=== PATIENT | female | born 1985 | race Caucasian/White ===

== ENCOUNTER 2020-04-02 16:42 | Emergency (ER) | payer OTHER ==
[2020-04-02] MEDS ORDERED: SODIUM CHLORIDE 0.9% 1,000 ML IV STA (17:27)
[2020-04-02] MEDS ORDERED: ONDANSETRON 4 MG/2 ML VIAL IVP STA (17:27)
[2020-04-02 18:03] LABS: Basophils # (A) 0.1 k/uL (0-0.2); Basophils % (A) 1 %; Eosinophils # (A) 0.3 k/uL (0-0.7); Eosinophils % (A) 3 %; HCT 43.1 % (34.0-46.0); HGB 14.3 gm/dL (11.4-16.0); Lymphocytes # (A) 2.7 k/uL (1.0-4.8); Lymphocytes % (A) 28 %; MCH 30.3 pg (25.0-35.0); MCHC 33.2 g/dL (31.0-37.0); MCV 91.1 fL (80.0-100.0); Mean Platelet Volume 6.4; Monocytes # (A) 0.4 k/uL (0-1.0); Monocytes % (A) 4 %; Neutrophils # (A) 5.9 k/uL (1.3-7.7); Neutrophils % (A) 62 %; Platelet Count 399 k/uL (150-450); RBC 4.73 m/uL (3.80-5.40); WBC 9.5 k/uL (3.8-10.6)
--- NOTE | 2020-04-02 18:05 | XR ---
EXAMINATION TYPE: XR chest 2V DATE OF EXAM: 04/02/2020 COMPARISON: NONE HISTORY: Cough and short of breath TECHNIQUE: FINDINGS: Heart and mediastinum are normal. Lungs are clear. Diaphragm is normal. Bony thorax appears normal. IMPRESSION: Normal chest.
[2020-04-02 18:15] LABS: ALT 19 U/L (4-34); AST 25 U/L (14-36); African American GFR (CKD) >90 (>60 ml/min/1.73 sqM); Albumin 4.6 g/dL (3.5-5.0); Alkaline Phosphatase 97 U/L (38-126); Anion Gap 9 mmol/L; Blood Urea Nitrogen 10 mg/dL (7-17); Calcium 8.9 mg/dL (8.4-10.2); Carbon Dioxide 22 mmol/L (22-30); Chloride 111 mmol/L (98-107); Glucose 97 mg/dL (74-99); Non-African American GFR(CKD) 82 (>60 ml/min/1.73 sqM); Potassium 3.7 mmol/L (3.5-5.1); Sodium 142 mmol/L (137-145); Total Bilirubin 0.3 mg/dL (0.2-1.3); Total Protein 8.1 g/dL (6.3-8.2)
--- NOTE | 2020-04-02 18:22 | ED ---
URI HPI - General Chief Complaint: Upper Respiratory Infection Stated Complaint: dehydration/body aches Time Seen by Provider: 04/02/20 17:01 Source: patient Mode of arrival: ambulatory Limitations: no limitations - History of Present Illness Initial Comments: Patient is a 34-year-old female presenting to the emergency Department with complaints of continued nausea, body aches, fatigue. Patient states she was diagnosed with Covid on March 20. Patient states she has not had fevers since the first few days of her diagnosis. Patient states her appetite has been low secondary to her loss of taste buds and loss of smell. Patient states anything she eats she becomes nauseous and vomits out. She did admit to some mild diarrhea that has since cleared. She does admit to some shortness of breath with exertion. She still has a cough with some mild sputum production. She denies any chest pains, abdominal pains. She states she feels like she is very dehydrated and very fatigued. She has no further complaints at this time. Upon arrival to the ER her vital signs are stable. - Related Data Home Medications Medication Instructions Recorded Confirmed Cholecalciferol [Vitamin D3] 1,000 unit PO DAILY 02/28/16 02/28/16 Fish Oil/Dha/Epa [Fish Oil 1,200 1 cap PO DAILY 02/28/16 02/28/16 mg Fish Oil] Folic Acid 0.8 mg PO DAILY 02/28/16 02/28/16 Previous Rx's Medication Instructions Recorded Albuterol Inhaler [Ventolin Hfa 1 puff INHALATION RT-QID PRN #1 04/02/20 Inhaler] puff Ondansetron Odt [Zofran Odt] 4 mg PO Q8HR PRN #10 tab 04/02/20 Allergies Allergy/AdvReac Type Severity Reaction Status Date / Time Cephalosporins Allergy Anaphylaxis Verified 04/02/20 16:47 latex Allergy Rash/Hives Verified 04/02/20 16:47 morphine Allergy Rash/Hives Verified 04/02/20 16:47 Penicillins Allergy Anaphylaxis Verified 04/02/20 16:47 Sulfa (Sulfonamide Allergy Anaphylaxis Verified 04/02/20 16:47 Antibiotics) Review of Systems ROS Statement: Those systems with pertinent positive or pertinent negative responses have been documented in the HPI. ROS Other: All systems not noted in ROS Statement are negative. Past Medical History Additional Past Medical History / Comment(s): migraines History of Any Multi-Drug Resistant Organisms: None Reported Past Surgical History: Appendectomy, Section, Cholecystectomy, Tonsillectomy Past Psychological History: Anxiety Smoking Status: Former smoker Past Alcohol Use History: Rare Past Drug Use History: None Reported General Exam - General Exam Comments Initial Comments: GENERAL: Patient is well-developed and well-nourished. Patient is nontoxic and in no acute distress. HEAD: Atraumatic, normocephalic. EYES: Pupils equal round and reactive to light, extraocular movements intact, sclera anicteric, conjunctiva are normal. Eyelids were unremarkable. ENT: TMs normal, nares patent, oropharynx clear without exudates. Moist mucous membranes. NECK: Normal range of motion, supple without lymphadenopathy or JVD. LUNGS: Unlabored respirations. Breath sounds clear to auscultation bilaterally and equal. No wheezes rales or rhonchi. HEART: Regular rate and rhythm without murmurs, rubs or gallops. ABDOMEN: Soft, nontender, normoactive bowel sounds. No guarding, no rebound. No masses appreciated. : Deferred MUSCULOSKELETAL: Normal extremities with adequate strength and normal range of motion, no pitting or edema. No clubbing or cyanosis. NEUROLOGICAL: Patient is alert and oriented x 3. Motor and sensory are also intact. Cranial nerves II through XII grossly intact. Symmetrical smile. Normal speech, normal gait. PSYCH: Normal mood, normal affect. SKIN: Warm, Dry, normal turgor, no rashes or lesions noted. Limitations: no limitations Course Vital Signs 04/02/20 04/02/20 16:44 19:08 Temperature 98.9 F 99.4 F Pulse Rate 107 H 94 Respiratory 20 18 Rate Blood Pressure 144/90 127/76 O2 Sat by Pulse 100 100 Oximetry Medical Decision Making - Medical Decision Making Patient is a 34-year-old female, presenting with fatigue, dehydration, body aches for the last few days. She was diagnosed with Covid 14 days ago. Her vital signs have remained stable. Her exam is unremarkable. Chest x-ray reveals no evidence of pneumonia, no other acute process. Her lab work is unremarkable. Patient was given a liter fluid bolus, has been comfortable in the ER. I discussed with patient her findings. She is most likely continuing to fight off this virus. I will give her prescription for Zofran for additional nausea and vomiting, as well as an albuterol inhaler for shortness of breath and cough. Patient is in agreement with this plan of care. She is stable for discharge. Recommend following up with her PCP. Return parameters were discussed the patient and she verbalized understanding. Discussed with Dr. Wells. - Lab Data Result diagrams: 04/02/20 17:45 04/02/20 17:45 Lab Results 04/02/20 04/02/20 04/02/20 Range/Units 17:45 17:45 17:45 WBC 9.5 (3.8-10.6) k/uL RBC 4.73 (3.80-5.40) m/uL Hgb 14.3 (11.4-16.0) gm/dL Hct 43.1 (34.0-46.0) % MCV 91.1 (80.0-100.0) fL MCH 30.3 (25.0-35.0) pg MCHC 33.2 (31.0-37.0) g/dL RDW 13.0 (11.5-15.5) % Plt Count 399 (150-450) k/uL Neutrophils % 62 % Lymphocytes % 28 % Monocytes % 4 % Eosinophils % 3 % Basophils % 1 % Neutrophils # 5.9 (1.3-7.7) k/uL Lymphocytes # 2.7 (1.0-4.8) k/uL Monocytes # 0.4 (0-1.0) k/uL Eosinophils # 0.3 (0-0.7) k/uL Basophils # 0.1 (0-0.2) k/uL Sodium 142 (137-145) mmol/L Potassium 3.7 (3.5-5.1) mmol/L Chloride 111 H (98-107) mmol/L Carbon Dioxide 22 (22-30) mmol/L Anion Gap 9 mmol/L BUN 10 (7-17) mg/dL Creatinine 0.93 (0.52-1.04) mg/dL Est GFR (CKD-EPI)AfAm >90 (>60 ml/min/1.73 sqM) Est GFR (CKD-EPI)NonAf 82 (>60 ml/min/1.73 sqM) Glucose 97 (74-99) mg/dL Plasma Lactic Acid Barron 1.1 (0.7-2.0) mmol/L Calcium 8.9 (8.4-10.2) mg/dL Total Bilirubin 0.3 (0.2-1.3) mg/dL AST 25 (14-36) U/L ALT 19 (4-34) U/L Alkaline Phosphatase 97 (38-126) U/L Total Protein 8.1 (6.3-8.2) g/dL Albumin 4.6 (3.5-5.0) g/dL Disposition Clinical Impression: Upper respiratory tract infection due to COVID-19 virus Disposition: HOME SELF-CARE Condition: Stable Instructions (If sedation given, give patient instructions): Upper Respiratory Infection (ED) Additional Instructions: Please return to the Emergency Department if symptoms worsen or any other c oncerns. Continue to increase fluid intake, fluids. Use inhaler as needed for shortness of breath or cough. May use Zofran for nausea and vomiting. Follow up with PCP as discussed. Prescriptions: Albuterol Inhaler [Ventolin Hfa Inhaler] 1 puff INHALATION RT-QID PRN #1 puff PRN Reason: Shortness Of Breath Ondansetron Odt [Zofran Odt] 4 mg PO Q8HR PRN #10 tab PRN Reason: Nausea Is patient prescribed a controlled substance at d/c from ED?: No Referrals: None,Stated [Primary Care Provider] - 1-2 days
[2020-04-02 19:09] VITALS: BP 127/76; PULSE 94; RESP 18; TEMP 99.4
== END 2020-04-02 19:25 | disposition home or self-care (01) ==
LOC: EC 16:42
DX: U07.1 COVID-19 (principal); J06.9 Acute upper respiratory infection, unspecified; R11.2 Nausea with vomiting, unspecified; E86.0 Dehydration; Z91.040 Latex allergy status; Z88.5 Allergy status to narcotic agent; Z88.0 Allergy status to penicillin; Z88.2 Allergy status to sulfonamides; Z88.1 Allergy status to other antibiotic agents; Z87.891 Personal history of nicotine dependence
CPT/HCPCS: 80053; 83605; 85025; 71046; 99283; 96374; 96361; J2405; 36415

== ENCOUNTER → 2022-05-18 | Outpatient (CLI) | payer OTHER ==
--- NOTE | 2022-05-18 17:01 | US ---
EXAMINATION TYPE: Transabdominal DATE OF EXAM: 05/18/2022 4:31 PM COMPARISON: NONE CLINICAL HISTORY: Z34.90 SUPERVISION OF NORMAL . EXAM PERFORMED: Transvaginal (TV) and Transabdominal (TA) EXAM MEASUREMENTS: GESTATIONAL AGE / DATING Physician Established: Not yet established Dates by LMP: (8 weeks/2 days) EDC: 12/26/2022 Dates by First Scan: No previous this is first scan Dates by Current Scan for: (6 weeks/1 days) EDC: 01/10/2023 MATERNAL ANATOMY Uterus: wnl Right Ovary: Complex cystic area 1.5 x 0.88 x 1.1cm Left Ovary: wnl Post CDS / Adnexa: wnl Presence of free fluid: No Presence of corpus luteal cyst: No Presence of subchorionic bleed: No GESTATION / SURVEY CRL: 0.56cm (6 weeks/2 days) MSD: 1.7cm (6 weeks/0 days) Yolk Sac (normal less than 6mm): 3.1mm Heart Rate: 0 bpm IUP: No heart tone at this time Date of LMP: 03/21/2022 IMPRESSION: 1. Single intrauterine gestation. No heart tones identified. Estimated gestational age based on a crown-rump length of 6 weeks 2 days with the estimated gestational age based on the mean sac diame ter of 6 weeks 0 days. Early is not entirely excluded. Follow-up is recommended. Correlatio n with serial beta-hCG is recommended. Intrauterine demise should be considered.
== END | disposition home or self-care (01) ==
LOC: RADUSWWP 15:45
PROVIDERS: ATTEND Obstetrics & Gynecology
DX: Z34.91 Encounter for supervision of normal pregnancy, unspecified, first trimester (principal); Z3A.01 Less than 8 weeks gestation of pregnancy
CPT/HCPCS: 76801; 76817

== ENCOUNTER 2022-05-29 12:22 | Emergency (ER) | payer OTHER ==
[2022-05-29 12:58] VITALS: TEMP 97.6
[2022-05-29] MEDS ORDERED: ONDANSETRON 4 MG/2 ML VIAL IVP STA (15:10)
[2022-05-29] MEDS ORDERED: HYDROmorphone 0.5 MG/0.5 ML SYRINGE IVP STA ×2 (15:10→18:11)
[2022-05-29] MEDS ORDERED: SODIUM CHLORIDE 0.9% 1,000 ML IV STA (15:10)
[2022-05-29] MEDS ORDERED: KETOROLAC 15 MG/ML 1 ML VIAL IVP STA (15:10)
[2022-05-29 15:56] LABS: ALT 25 U/L (4-34); AST 31 U/L (14-36); African American GFR (CKD) >90 (>60 ml/min/1.73 sqM); Albumin 4.1 g/dL (3.5-5.0); Alkaline Phosphatase 92 U/L (38-126); Amorphous Sediment,Urine Moderate /hpf; Amylase 55 U/L (30-110); Anion Gap 7 mmol/L; Appearance,Urine Cloudy (Clear); Bilirubin,Urine Negative (Negative); Blood Urea Nitrogen 11 mg/dL (7-17); Blood,Urine Large (Negative); Calcium 8.4 mg/dL (8.4-10.2); Carbon Dioxide 23 mmol/L (22-30); Chloride 109 mmol/L (98-107); Color,Urine Yellow; Glucose 84 mg/dL (74-99); Glucose,Urine (UA) Negative (Negative); Ketones,Urine Negative (Negative); Leukocyte Esterase,Urine Trace (Negative); Lipase 60 U/L (23-300); Nitrite,Urine Negative (Negative); Non-African American GFR(CKD) >90 (>60 ml/min/1.73 sqM); PH, Urine 6.5 (5.0-8.0); Potassium 4.2 mmol/L (3.5-5.1); Protein,Urine Negative (Negative); RBC,Urine 92 /hpf (0-5); Sodium 139 mmol/L (137-145); Specific Gravity,Urine 1.015 (1.001-1.035); Squamous Epithelial Cell,Urine 5 /hpf (0-4); Total Bilirubin 0.4 mg/dL (0.2-1.3); Total Protein 7.2 g/dL (6.3-8.2); Urobilinogen,Urine <2.0 mg/dL (<2.0); WBC,Urine 37 /hpf (0-5)
[2022-05-29 16:04] LABS: Basophils % (A) 0 %; Eosinophils # (A) 0.2 k/uL (0-0.7); Eosinophils % (A) 2 %; HCT 38.4 % (34.0-46.0); HGB 13.4 gm/dL (11.4-16.0); Lymphocytes # (A) 2.2 k/uL (1.0-4.8); Lymphocytes % (A) 27 %; MCH 31.4 pg (25.0-35.0); MCV 89.8 fL (80.0-100.0); Monocytes # (A) 0.4 k/uL (0-1.0); Monocytes % (A) 5 %; Neutrophils # (A) 5.2 k/uL (1.3-7.7); Neutrophils % (A) 64 %; Platelet Count 345 k/uL (150-450); RBC 4.27 m/uL (3.80-5.40); RDW 12.7 % (11.5-15.5)
[2022-05-29 16:05] LABS: INR 0.9 (<1.2); Partial Thromboplastin Time 24.1 sec (22.0-30.0)
[2022-05-29 16:30] LABS: HCG,Quantitative Serum 153.7 mIU/mL
--- NOTE | 2022-05-29 16:57 | US ---
EXAMINATION TYPE: Transabdominal DATE OF EXAM: 05/29/2022 4:36 PM COMPARISON: NONE CLINICAL HISTORY: active known miscarriage, worsening abd pain.. Pain. Hx 1 ectopic , 1 misc arriage, D and C x 2. . EXAM PERFORMED: Transvaginal (TV) and Transabdominal (TA) EXAM MEASUREMENTS: GESTATIONAL AGE / DATING Physician Established: Not yet established Dates by LMP: (9 weeks/6 days) EDC: 12/26/2022 Dates by First Scan: (7 weeks/5 days) EDC: 01/10/2023. Heart tones were not seen. Dates by Current Scan for: No IUP seen at this time. MATERNAL ANATOMY Uterus: 10.3 x 5.9 x 4.4 cm. Appears heterogeneous. Measures upper limits versus slightly enlarged. Endometrium measures 1.2 cm. Subcentimeter anechoic areas seen in cervix. Hypoechoic area seen lower uterus anteriorly: 1.6 x 1.6 x 1.0 cm. Right Ovary: 3.3 x 1.8 x 1.9 cm. Seen TV only. Complex area seen: 1.1 x 1.3 x 1.2 cm. Left Ovary: 3.2 x 1.8 x 2.0 cm. Seen TA only. Anechoic area seen: 1.2 x 1.2 x 1.1 cm. Post CDS / Adnexa: Fluid seen in CDS. Presence of free fluid: Fluid seen in CDS. Presence of corpus luteal cyst: Possible within right or left ovary, complex area seen within right o vary. Anechoic area seen in left ovary. GESTATION / SURVEY IUP: No IUP seen at this time. Date of LMP: 03/21/2022 Beta HcG (if available): 153.7 mIU/mL Arterial and venous waveforms seen within the ovaries as spectral Doppler was requested by ordering p hysician to rule out torsion. IMPRESSION: No evidence of intrauterine gestational sac in this patient with a positive B-hCG. This can be seen i n early , ectopic and spontaneous . Follow up pelvic ultrasound in 5-7 day s and serial beta hCG studies are recommended.
[2022-05-29 18:15] VITALS: BP 143/98; PULSE 86; RESP 19
--- NOTE | 2022-05-29 19:08 | CT ---
EXAMINATION TYPE: CT abdomen pelvis w con CT DLP: 1775.1 mGycm, Automated exposure control for dose reduction was used. DATE OF EXAM: 05/29/2022 6:15 PM COMPARISON: CT abdomen pelvis most recent from on 06/21/2012 CLINICAL INDICATION:Female, 36 years old with history of abd pain, active miscarriage; abd pain, acti ve miscarriage TECHNIQUE: Axial CT of the abdomen and pelvis. Sagittal and coronal reformats were created on a [employer] workstation. Contrast used:100ml mL of Isovue 300 with IV Contrast, Oral contrast used: without Oral Contrast FINDINGS: LOWER CHEST: Unremarkable ABDOMEN LIVER: Unremarkable GALLBLADDER AND BILE DUCTS: Unremarkable. PANCREAS: Unremarkable. SPLEEN: Unremarkable. ADRENAL GLANDS: Unremarkable. KIDNEYS AND URETERS: No evidence of hydronephrosis or renal calculus. The ureters are unremarkable. PELVIS BLADDER: Unremarkable REPRODUCTIVE: Heterogenous endometrium present. ABDOMEN & PELVIS STOMACH AND BOWEL: No evidence of bowel obstruction. Appendix appears surgically absent. PERITONEUM: No evidence of pneumoperitoneum or free fluid. VASCULATURE: No evidence of aortic aneurysm. MUSCULOSKELETAL: No acute osseous abnormalities LYMPH NODES: No gross evidence for lymphadenopathy. SOFT TISSUE/ABDOMINAL WALL: Small fat-containing umbilical hernia. IMPRESSION: 1. Heterogenous endometrium which could represent spontaneous miscarriage given provided history. 2. No evidence for acute intraluminal process.
--- NOTE | 2022-05-29 19:37 | ED ---
General Adult HPI - General Chief complaint: Abdominal Pain Stated complaint: miscarriage 5 days ago, abd pain Time Seen by Provider: 05/29/22 14:59 Source: patient, RN notes reviewed, old records reviewed Mode of arrival: ambulatory Limitations: no limitations - History of Present Illness Initial comments: Patient is a 37-year-old female with past medical history remarkable for migraines. Patient is . Currently having a miscarriage. She passed clots as well as the gestational sac on last Sunday. Has been having some cramping since but over the last 2 days worsening lower abdominal pain. States this is different than prior miscarriages as well as the recent 1. Presents for further evaluation of this time. Denies any urinary complaints. Denies any nausea or vomiting. Denies any diarrhea. Denies any chest pain or shortness of breath. States the pain has been more or less constant for the last 2 days. Presents for further evaluation. Has not followed up with her ST[facility] W[facility]DER this week. States last beta hCG was in the thousands. Endorses a history of a single ectopic . This was confirmed with a definitive IUP on ultrasound. Was approximately 6-7 weeks when miscarriage began.Denies vaginal discharge. Does endorse continued vaginal bleeding, possibly 4-5 pads that are not fully saturated per day. - Related Data Home Medications Medication Instructions Recorded Confirmed Acetaminophen [Tylenol Extra 1,000 mg PO Q4H 05/29/22 05/29/22 Strength] Ibuprofen [Motrin Ib] 600 - 800 mg PO Q6H 05/29/22 05/29/22 [id number] Acid 1 cap PO HS 05/29/22 05/29/22 [-U Capsule (formulary)] Previous Rx's Medication Instructions Recorded methocarbamoL [Robaxin] 500 mg PO BID PRN 7 Days #14 tab 05/29/22 Allergies Allergy/AdvReac Type Severity Reaction Status Date / Time Cephalosporins Allergy Anaphylaxis Verified 05/29/22 15:29 latex Allergy Rash/Hives Verified 05/29/22 15:29 morphine Allergy Rash/Hives Verified 05/29/22 15:29 Penicillins Allergy Anaphylaxis Verified 05/29/22 15:29 Sulfa (Sulfonamide Allergy Anaphylaxis Verified 05/29/22 15:29 Antibiotics) Review of Systems ROS Statement: Those systems with pertinent positive or pertinent negative responses have been documented in the HPI. Review of Systems: CONST: Denies fever EYES: Denies blurry vision ENT: Denies nasal congestion C/V: Denies Chest pain RESP: Denies shortness of breath GI: Endorses abdominal pain : Denies dysuria SKIN: Denies rash. MSK: Denies joint pain. NEURO: Denies headache ROS Other: All systems not noted in ROS Statement are negative. Past Medical History Additional Past Medical History / Comment(s): migraines History of Any Multi-Drug Resistant Organisms: None Reported Past Surgical History: Appendectomy, Section, Cholecystectomy, Tonsillectomy Past Psychological History: Anxiety Smoking Status: Former smoker Past Alcohol Use History: Rare Past Drug Use History: None Reported General Exam - General Exam Comments Initial Comments: General: Appears in mild distress secondary to abdominal pain. HEAD: Normal with no signs of head trauma. EYES: PERRLA, EOMI, conjunctiva normal, no discharge. ENT: Hearing grossly intact, normal oropharynx. RESPIRATORY: Clear breath sounds bilaterally. No wheezes, rales, or rhonchi. C/V: Regular rate and rhythm. S1 and S2 auscultated, no edema, peripheral pulses 2+ and intact throughout ABD: Abdomen is soft, nondistended. Tender to palpation primarily in the suprapubic region. EXT: Normal range of motion, no obvious deformity SKIN: No rashes or lesions observed on exposed skin. NEURO: Alert and oriented 4. No focal deficits. Limitations: no limitations Course Vital Signs 05/29/22 05/29/22 12:55 18:15 Temperature 97.6 F Pulse Rate 89 86 Respiratory 18 19 Rate Blood Pressure 129/86 143/98 O2 Sat by Pulse 100 99 Oximetry Medical Decision Making - Medical Decision Making Based on the patient's presentation and physical exam, I'm concerned for possible continuing miscarriage but not cannot rule out other intra-abdominal pathology at this time. We will obtain abdominal laboratory studies, as well as a quantitative beta hCG and an ultrasound. Blood type is A+ and therefore does not require RhoGAM. Vital signs within normal limits. She was in agreement with this plan. She'll be given analgesic medications and 1 L fluid bolus. Laboratory studies are remarkable for a quantitative beta-hCG of 153. This is decreased from prior. Urinalysis is a contaminated catch. Also shows blood likely secondary to her active miscarriage. Hemoglobin is within normal limits as are coags. Remainder the vitals are unremarkable. Ultrasound revealed no IUP. No other findings. I discussed results of the patient. She is still having mild pain. I did offer CT scanning which she accepted. CT abdomen and pelvis with contrast is interpreted by myself reveals heterogeneous endometrium which is likely secondary to the active miscarriage. No other findings. I discussed the results with the patient. I do believe it is safe for her to be discharged home and close follow-up with her [facility]. She was in agreement this plan. Strict return precautions were discussed. She understands that she needs to monitor the quantitative beta hCG done to 0. I will provide the patient with a prescription for Robaxin. I instructed the patient to follow up with their PCP in the next 1-3 days. I explained that the patient should return to the emergency department if they experience any worsening symptoms. Strict return precautions were discussed with the patient. The patient expressed understanding of these instructions. I answered all questions that the patient had. The patient was discharged home in good condition with their prescriptions and follow up information. - Lab Data Result diagrams: 05/29/22 15:38 05/29/22 15:38 Lab Results 05/29/22 05/29/22 05/29/22 Range/Units 15:38 15:38 15:38 WBC 8.0 (3.8-10.6) k/uL RBC 4.27 (3.80-5.40) m/uL Hgb 13.4 (11.4-16.0) gm/dL Hct 38.4 (34.0-46.0) % MCV 89.8 (80.0-100.0) fL MCH 31.4 (25.0-35.0) pg MCHC 35.0 (31.0-37.0) g/dL RDW 12.7 (11.5-15.5) % Plt Count 345 (150-450) k/uL MPV 7.0 Neutrophils % 64 % Lymphocytes % 27 % Monocytes % 5 % Eosinophils % 2 % Basophils % 0 % Neutrophils # 5.2 (1.3-7.7) k/uL Lymphocytes # 2.2 (1.0-4.8) k/uL Monocytes # 0.4 (0-1.0) k/uL Eosinophils # 0.2 (0-0.7) k/uL Basophils # 0.0 (0-0.2) k/uL PT 10.0 (9.0-12.0) sec INR 0.9 (<1.2) APTT 24.1 (22.0-30.0) sec Sodium (137-145) mmol/L Potassium (3.5-5.1) mmol/L Chloride (98-107) mmol/L Carbon Dioxide (22-30) mmol/L Anion Gap mmol/L BUN (7-17) mg/dL Creatinine (0.52-1.04) mg/dL Est GFR (CKD-EPI)AfAm (>60 ml/min/1.73 sqM) Est GFR (CKD-EPI)NonAf (>60 ml/min/1.73 sqM) Glucose (74-99) mg/dL Plasma Lactic Acid Barron (0.7-2.0) mmol/L Calcium (8.4-10.2) mg/dL Total Bilirubin (0.2-1.3) mg/dL AST (14-36) U/L ALT (4-34) U/L Alkaline Phosphatase (38-126) U/L Total Protein (6.3-8.2) g/dL Albumin (3.5-5.0) g/dL Amylase (30-110) U/L Lipase (23-300) U/L HCG, Quant mIU/mL Urine Color Yellow Urine Appearance Cloudy H (Clear) Urine pH 6.5 (5.0-8.0) Ur Specific [place] 1.015 (1.001-1.035) Urine Protein Negative (Negative) Urine Glucose (UA) Negative (Negative) Urine Ketones Negative (Negative) Urine Blood Large H (Negative) Urine Nitrite Negative (Negative) Urine Bilirubin Negative (Negative) Urine Urobilinogen <2.0 (<2.0) mg/dL Ur Leukocyte Esterase Trace H (Negative) Urine RBC 92 H (0-5) /hpf Urine WBC 37 H (0-5) /hpf Ur Squamous Epith Cells 5 H (0-4) /hpf Amorphous Sediment Moderate H (None) /hpf 05/29/22 05/29/22 Range/Units 15:38 15:56 WBC (3.8-10.6) k/uL RBC (3.80-5.40) m/uL Hgb (11.4-16.0) gm/dL Hct (34.0-46.0) % MCV (80.0-100.0) fL MCH (25.0-35.0) pg MCHC (31.0-37.0) g/dL RDW (11.5-15.5) % Plt Count (150-450) k/uL MPV Neutrophils % % Lymphocytes % % Monocytes % % Eosinophils % % Basophils % % Neutrophils # (1.3-7.7) k/uL Lymphocytes # (1.0-4.8) k/uL Monocytes # (0-1.0) k/uL Eosinophils # (0-0.7) k/uL Basophils # (0-0.2) k/uL PT (9.0-12.0) sec INR (<1.2) APTT (22.0-30.0) sec Sodium 139 (137-145) mmol/L Potassium 4.2 (3.5-5.1) mmol/L Chloride 109 H (98-107) mmol/L Carbon Dioxide 23 (22-30) mmol/L Anion Gap 7 mmol/L BUN 11 (7-17) mg/dL Creatinine 0.74 (0.52-1.04) mg/dL Est GFR (CKD-EPI)AfAm >90 (>60 ml/min/1.73 sqM) Est GFR (CKD-EPI)NonAf >90 (>60 ml/min/1.73 sqM) Glucose 84 (74-99) mg/dL Plasma Lactic Acid Barron 0.9 (0.7-2.0) mmol/L Calcium 8.4 (8.4-10.2) mg/dL Total Bilirubin 0.4 (0.2-1.3) mg/dL AST 31 (14-36) U/L ALT 25 (4-34) U/L Alkaline Phosphatase 92 (38-126) U/L Total Protein 7.2 (6.3-8.2) g/dL Albumin 4.1 (3.5-5.0) g/dL Amylase 55 (30-110) U/L Lipase 60 (23-300) U/L HCG, Quant 153.7 mIU/mL Urine Color Urine Appearance (Clear) Urine pH (5.0-8.0) Ur Specific [place] (1.001-1.035) Urine Protein (Negative) Urine Glucose (UA) (Negative) Urine Ketones (Negative) Urine Blood (Negative) Urine Nitrite (Negative) Urine Bilirubin (Negative) Urine Urobilinogen (<2.0) mg/dL Ur Leukocyte Esterase (Negative) Urine RBC (0-5) /hpf Urine WBC (0-5) /hpf Ur Squamous Epith Cells (0-4) /hpf Amorphous Sediment (None) /hpf Disposition Clinical Impression: Miscarriage, Abdominal pain Disposition: HOME SELF-CARE Condition: Good Instructions (If sedation given, give patient instructions): Miscarriage (ED), Abdominal Pain (ED) Prescriptions: methocarbamoL [Robaxin] 500 mg PO BID PRN 7 Days #14 tab PRN Reason: Pain Is patient prescribed a controlled substance at d/c from ED?: No Referrals: Liset Carlisle MD [Primary Care Provider] - 1-2 days Time of Disposition: 19:15
[2022-05-29] MEDS ORDERED: ACET/COD 300 MG/30 MG STARTER PACK 6 TAB BTL PO STA (19:38)
== END 2022-05-29 19:54 | disposition home or self-care (01) ==
LOC: EC 12:22
DX: O03.9 Complete or unspecified spontaneous abortion without complication (principal); O99.611 Diseases of the digestive system complicating pregnancy, first trimester; O99.341 Other mental disorders complicating pregnancy, first trimester; F41.9 Anxiety disorder, unspecified; O99.331 Smoking (tobacco) complicating pregnancy, first trimester; Z87.891 Personal history of nicotine dependence; Z88.0 Allergy status to penicillin; Z88.1 Allergy status to other antibiotic agents; Z88.2 Allergy status to sulfonamides; Z91.040 Latex allergy status; Z3A.01 Less than 8 weeks gestation of pregnancy
CPT/HCPCS: 36415; 80053; 82150; 83605; 83690; 85025; 85610; 85730; 81001; 84702; 87086; 93975; 76801; 76817; 74177; 99285; 96374; 96375 ×2; 96376; 96361 ×2; J2405; J1885; J1170; Q9967

== ENCOUNTER → 2024-03-05 | Outpatient (CLI) | payer OTHER ==
--- NOTE | 2024-03-12 18:17 | MM ---
Reason for Exam: Screening (asymptomatic). Last mammogram was performed 8 year(s) and 9 month(s) ago. Patient History: Menarche at age 11. First Full-Term at age 22. Patient has history of breast feeding. Patient used Hormonal Contraceptives for 10 years. Mother had breast cancer, age 32. Last menstrual period: 02/09/2024 Risk Values: Kinsey 5 year model risk: 0.7%. NCI Lifetime model risk: 20.3%. Prior Study Comparison: 06/22/2015 Bilateral Screening Mammogram, Demetris Heard . Tissue Density: There are scattered areas of fibroglandular density. Findings: Analyzed By CAD. There is no suspicious group of microcalcifications or new suspicious mass in either breast. Overall Assessment: Negative, BI-RAD 1 Management: Screening Mammogram of both breasts in 1 year. See note below in regards to the patient's increased lifetime risk score. Patient should continue monthly self-breast exams. A clinical breast exam by your physician is recommended on an annual basis. This exam should not preclude additional follow-up of suspicious palpable abnormalities. Note on Kinsey scores and lifetime risk: 1. A Kinsey score greater than 3% is considered moderate risk. If this is the case, consider specialist referral to assess eligibility for a risk reducing agent. 2. If overall lifetime risk for the development of breast cancer is 20% or higher, the patient may qualify for future screening with alternating mammogram and breast MRI. [facility], , 03/12/2024 6:13 PM. Electronically signed and approved by: Della Saavedra M.D. Radiologist
== END | disposition home or self-care (01) ==
LOC: RADMAMWWP 12:51
PROVIDERS: ATTEND Family Medicine
DX: Z80.3 Family history of malignant neoplasm of breast
CPT/HCPCS: 77063; 77067